=== PATIENT | male | born 1960 | race Caucasian/White ===

== ENCOUNTER 2018-11-14 13:22 | Emergency (ER) | payer OTHER ==
[2018-11-14 13:33] VITALS: TEMP 97.8
--- NOTE | 2018-11-14 14:01 | ED.PDOC ---
History of Present Illness - General Chief Complaint: General Stated Complaint: "irritation in private part and poss mole near rec Time Seen by Provider: 11/14/18 13:32 Source: patient Exam Limitations: no limitations - History of Present Illness Initial Comments: Patient presents with a rash at his perineum and upper thighs for several days. It is burning and itching. He has tried putting betadine and rubbing alcohol on it. He had a similar rash on his leg once that was diagnosed as a fungal rash. He also noticed a "bump" at his anus. No other complaints. Timing/Duration: unsure Severity: moderate Improving Factors: nothing Worsening Factors: nothing Associated Symptoms: denies symptoms Allergies/Adverse Reactions: Allergies Ketorolac Tromethamine [From Toradol] Allergy (Verified 11/14/18 13:34) Home Medications: Ambulatory Orders Clotrimazole (Topical) [Lotrimin AF] 1 % EX BID 28 Days #1 cre 11/14/18 Fluconazole [Diflucan Tab] 150 mg PO DAILY #2 tab 11/14/18 Review of Systems - Review of Systems Constitutional: States: no symptoms reported EENTM: States: no symptoms reported Respiratory: States: no symptoms reported Cardiology: States: no symptoms reported Gastrointestinal/Abdominal: States: no symptoms reported Genitourinary: States: no symptoms reported Musculoskeletal: States: no symptoms reported Skin: States: see HPI Neurological: States: no symptoms reported Endocrine: States: no symptoms reported Hematologic/Lymphatic: States: no symptoms reported Past Medical History (General) - Patient Medical History Hx Asthma: No Hx Cardiac Disorders: Yes Hx Hypertension: No Hx Diabetes: No Hx Cancer: No Hx Hepatitis C: No - Vaccination History Hx Tetanus, Diphtheria Vaccination: No Hx Influenza Vaccination: No Hx Pneumococcal Vaccination: No Immunizations Up to Date: No - Social History Hx Tobacco Use: Yes Hx Alcohol Use: No Hx Substance Use: No Hx Substance Use Treatment: No Family Medical History - Family History Father Family History: Unknown Living Status: Unknown Physical Exam - Physical Exam General Appearance: Alert Respiratory: lungs clear, normal breath sounds Cardiovascular/Chest: regular rate, rhythm Gastrointestinal/Abdominal: normal bowel sounds, non tender, soft Rectal Exam: hemorrhoids - single 1.5 cm external hemorrhoid Skin Exam: other - erythmatic non-blanching rash with papular satellite lesions on the perineum and bilateral medial thighs, TTP Departure - Departure Clinical Impression: Intertriginous candidiasis Disposition: Discharge to Home or Self Care Condition: Good Departure Forms: ED Discharge - Pt. Copy, Patient Portal Self Enrollment Diet: resume usual diet Activity: increase activity as tolerated Prescriptions: Clotrimazole (Topical) [Lotrimin AF] 1 % EX BID 28 Days #1 cre Fluconazole [Diflucan Tab] 150 mg PO DAILY #2 tab Home Medications: Ambulatory Orders Clotrimazole (Topical) [Lotrimin AF] 1 % EX BID 28 Days #1 cre 11/14/18 Fluconazole [Diflucan Tab] 150 mg PO DAILY #2 tab 11/14/18 Additional Instructions: After showering or bathing, pat the affected area dry with a soft towel. Apply the anti-fungal cream as directed. Keep the area dry using corn starch or Darren's Baby Powder once per day. See your regular doctor if not resolved in two weeks.
[2018-11-14 14:15] VITALS: BP 157/78; O2SAT 98
== END 2018-11-14 14:15 | disposition home or self-care (01) ==
LOC: ER 13:22
DX: B37.2 Candidiasis of skin and nail (principal); K64.4 Residual hemorrhoidal skin tags; I51.9 Heart disease, unspecified; Z87.891 Personal history of nicotine dependence